=== PATIENT | male | born 1930 | race Two or more races ===

== ENCOUNTER 2016-09-12 09:13 | Emergency (ER) | payer MEDICARE, OTHER ==
[~2016-09-12] VITALS: Ht 180.3 cm; Wt 88.9 kg
[~2016-09-12 09:13] MED LIST: ALLO100T; WARF1TAB
[2016-09-12 09:36] VITALS: BP 125/61
[2016-09-12] MEDS ORDERED: EPINEPHrine HCL 1 MG/1 ML AMP SC ONE (10:00)
[2016-09-12] MEDS ORDERED: methylPREDNISolone SOD SUCC 125 MG/2 ML VL IM ONE (10:00)
[2016-09-12] MEDS ORDERED: diphenhdrAMINE HCL 50 MG/1 ML VL IM ONE (10:00)
== END 2016-09-12 10:36 | disposition home or self-care (01) ==
LOC: ER 09:25
DX: R21 Rash and other nonspecific skin eruption (principal); T78.1XXA Other adverse food reactions, not elsewhere classified, initial encounter; I10 Essential (primary) hypertension; Y92.511 Restaurant or cafe as the place of occurrence of the external cause; Z79.01 Long term (current) use of anticoagulants; Z79.899 Other long term (current) drug therapy
CPT/HCPCS: 96372; 99284; J0171; J1200; J2930